=== PATIENT | female | born 1970 | race Caucasian/White ===

== ENCOUNTER 2018-07-30 02:02 | Emergency (ER) | payer MEDICAID, SELFPAY ==
[2018-07-30 02:03] VITALS: BP 146/85; PULSE 78; RESP 16; TEMP 36.7; O2SAT 98; BMI 39.5
[2018-07-30] MEDS: 0.9% Normal Saline 1,000 ML 1000 ML IV (02:22)
[2018-07-30] MEDS: Ondansetron 4 MG/2 ML Vial IV (02:22)
[2018-07-30] MEDS: Morphine 4 MG/ML Syringe IV (02:22)
[2018-07-30 02:38] LABS: Absolute Lymphocyte Count 2.01 X10^3/ul (0.83-4.51); Absolute Neutrophil Count 7.7 X10^3/uL (2.0-7.7); Basophil# 0.01 X10^3/uL; Basophil% 0.1 % (0-1); Eosinophil# 0.09 X10^3/uL; Eosinophils% 0.8 % (0-5); Hematocrit 39.6 % (37-47); Hemoglobin 13.2 g/dl (12.0-15.0); Lymphocyte # 2.01 X10^3/ul (4.0); Lymphocyte % 18.9 % (19-41); Mean Corp Hgb Conc 33.3 g/gl (32-36); Mean Corpuscular Hgb 31.9 pg (27.0-32.0); Mean Corpuscular Volume 95.7 fL (81-99); Mean Platelet Vol. 10.4 fl (6.2-12.0); Monocyte# 0.84 X10^3/uL; Monocyte% 7.9 % (0-10); Neutrophil # 7.65 X10^3/uL (2.7-7.7); Neutrophil % 72.1 % (47-70); POSITIVE COUNT NO; POSITIVE DIFFERENTIAL NO; POSITIVE MORPHOLOGY NO; Platelet Count 191 K/mm3 (150-450); RBC Distribution Width CV 12.7 % (11.6-14.6); RBC Distribution Width SD 43.9 fl (35.1-43.9); Red Blood Count 4.14 M/mm3 (4.2-5.4); White Blood Count 10.6 K/mm3 (4.4-11.0)
--- NOTE | 2018-07-30 02:44 | CT_ITS ---
HISTORY: LT SIDED ABDOMEN PAIN SINCE . BUT WORSE NOW,ELEVATED BPPRIOR HYSTERECTOMY TECHNIQUE: Helically acquired images were obtained of the abdomen and pelvis following IV contrast. A radiation dose optimization technique was used for this scan. IV Contrast dosage and agent: 100 cc Isovue-300 contrast Oral contrast: None. COMPARISON: None FINDINGS: The right and left kidneys are normal in position. Asymmetric mild hydronephrosis and hydroureter on the left accompanied by left periureteral mild edema. No intrarenal or ureteral stones currently identified. The left side findings are potentially related to recently passed stone with residual left UVJ edema. The urinary bladder is poorly distended. No hydronephrosis or hydroureter on the right. No suspicious renal lesion or pyelonephritis. Small parapelvic cyst at the lower pole of the left kidney. The adrenal glands are not enlarged. Abdominal aorta and IVC are on remarkable. Multiple small retroperitoneal lymph nodes without suspicious lymph node enlargement. Lung bases: Mild dependent atelectasis, not unusual. No pleural effusion. The liver, spleen, pancreas, gallbladder, and biliary system showed no CT abnormality. GI tract: No obstruction. Normal appendix. Pelvis: The urinary bladder is poorly distended. No urinary bladder stones seen. Previous hysterectomy. The pelvis shows no free fluid or lymphadenopathy. Osseous structures: No fracture or suspicious lesion. CT/Abdomen/Pelvis W IV Cont ONLY IMPRESSION: 1. Mild hydronephrosis and hydroureter on the left. Details above. Left UVJ edema related to a recently passed stone is a consideration. 2. No obstructing lesion or currently visualized stone. 3. Poor distention of the urinary bladder. Individualized dose optimization techniques were used for this CT. at 0432 Reported and signed by: Berry Escalante MD Electronically Signed: Berry Escalante, at 4:29 EST Tel , Service support ,
--- NOTE | 2018-07-30 02:47 | ED.DCSUM_ITS ---
- ER Visit Summary Date of Service: 07/30/18 Chief Complaint: Abdominal pain History of Present Illness: The patient is a 47 F presents to the emergency department abdominal pain. The patient symptoms began on Tuesday. She states she had some mild suprapubic tenderness and fullness. She began to have some dysuria. Since then, her pain is worsened. She does describe pain into her low back. She was mildly nauseated without vomiting. She denies any fevers or chills. She states she has never had pain like this before. She has had prior hysterectomy, but denies any other abdominal surgery. She denies any vaginal discharge. Physical Examination: Vital signs reviewed General: Well-nourished, well-developed Head: Normocephalic, atraumatic Eyes: Pupils equal and reactive, extraocular muscles intact Neck, supple, no lymphadenopathy Heart: Regular rate and rhythm Respiratory: No distress, clear bilaterally Abdomen: Soft, tender in the suprapubic area without rebound or guarding, nondistended, no peritoneal signs Back: Nontender Extremities: Nontender, no edema, no cords Skin: Normal color no rash Neuro: Alert and oriented, no focal or lateralizing deficits Test Results: [] Emergency Department Course and Treatment: The patient presents with suprapubic pain and dysuria. She does not think that she had fevers or chills. IV was established. She was given analgesics and antiemetics with marked improvement in her comfort. Her screening labs are relatively unremarkable. Her urine does show evidence of infection, but there is also blood. I did want to rule out obstructing kidney stone or other dangerous intra-abdominal process. Patient underwent CT of the abdomen and pelvis. There is some focal hydroureter in the left ureter, but no evidence of obstruction. My suspicion is that she may have early [place]win. The patient had urine culture added. She was treated with IV Rocephin. On reevaluation, she continues to be resting comfortably. She does not have a fever. She is tolerating oral. I do feel that she is safe for outpatient therapy. She will be continued on Cipro pending results of urine culture. She was counseled on concerning symptoms and reasons to return. She will be discharged home. Treatment Plan: [] Disposition: [] Impression: 1. Pyelonephritis This note was generated with Patient [employer]agement Systemsation software. It may contain incorrect words, spelling, and punctuation that were not noted in review of the chart prior to signing ED Disposition - Plan for ED Patient: Chief Complaint: Abd Pain Instructions: ED Kidney Infec Female Prescriptions: Oxycodone HCl/Acetaminophen [Percocet 5/325] 1 tab PO Q6H PRN PRN 3 Days #6 tab PRN Reason: Pain Ciprofloxacin [Cipro] 500 mg PO BID #14 tab Referrals: Reinaldo Pedraza DO [Primary Care Provider] -
[2018-07-30 02:59] LABS: AST(SGOT) 8 U/L (15-37); Alanine Aminotransfer ALT/SGPT 18 U/L (13-56); Albumin, Serum 3.4 g/dL (3.2-5.0); Alkaline Phosphatase 64 U/L (45-117); Anion Gap 9 (5-15); BUN 12 mg/dL (7-18); Calcium,Total 8.5 mg/dL (8.5-10.1); Chloride 106 mmol/L (98-107); Creatinine, Serum 0.63 mg/dL (0.55-1.02); EST Glomerular Filtration Rate 108 mL/min (>60); Est Glom Filt Rate - Afr Amer 130 mL/min (>60); Estimated Creatinine Clearance 96.35 ml/min; Globulin 3.3 g/dL (2.2-4.2); Glucose 97 mg/dL (74-106); Potassium 4.1 mmol/L (3.5-5.1); Protein, Total 6.7 g/dL (6.4-8.2); Sodium Level 140 mmol/L (136-145)
[2018-07-30 03:01] LABS: Mucous, Urine 0 SEEN /hpf (<or=2+)
[2018-07-30 03:18] LABS: Color, Urine Yellow (Yellow); Glucose, Dipstick Normal (Normal); Ketone-Dipstick Negative (Negative); Leukocyte Esterase-Dipstick 500 /ul (Negative); Nitrite-Dipstick Positive (Negative); Occult Blood-Urine 250 /ul (Negative); Protein-Dipstick 100 mg/dl (Negative); Urine Bilirubin Dipstick Negative (Negative); Urine Clarity Turbid (Clear); Urine Urobilinogen Normal (Normal)
[2018-07-30 03:30] LABS: Bacteria 2+ /hpf (None Seen); Red Blood Cells-Urine 10-25 SEEN /hpf (0-5); Squamous Epithelial Cells - UA 5-10 SEEN /hpf (5-10); White Blood Cells 50-100 SEEN /hpf (0-5)
[2018-07-30] MEDS: Ceftriaxone 1 GM/50 ML BAG IV (03:47)
[2018-07-30 04:44] VITALS: RESP 18
[2018-07-30] MEDS: oxyCODONE 5 MG Tablet PO (04:46)
== END 2018-07-30 04:49 | disposition home or self-care (01) ==
LOC: ED 02:28
PROVIDERS: Emergency Provider Emergency Medicine; Family Provider Student in an Organized Health Care Education/Training Program; PCP Student in an Organized Health Care Education/Training Program
DX: N12 Tubulo-interstitial nephritis, not specified as acute or chronic (principal)
CPT/HCPCS: 74177; 80053; 81001; 85025; 87086; 87088; 87186; 96361; 96365; 96375; 99285; A4216; J2405